=== PATIENT | male | born 1955 | race Hispanic/Latino ===

== ENCOUNTER 2019-03-10 15:29 | Emergency (ER) | payer BC | END 2019-03-10 18:14 | disposition left against medical advice (07) | LOC: ERS 15:29 | DX: Z53.21 Procedure and treatment not carried out due to patient leaving prior to being seen by health care provider (principal) ==

== ENCOUNTER 2019-03-10 20:25 | Emergency (ER) | payer BC ==
[2019-03-10] MEDS ORDERED: Fentanyl 100 MCG/2 ML VIAL ONE (22:08)
--- NOTE | 2019-03-10 22:49 | CT ---
CT Cervical Spine WO Con Indication: History of neck pain following injury COMPARISON: None. FINDINGS: Acute fracture/subluxation: None. Spinal alignment: No acute malalignment. Craniocervical junction: Within normal limits. Vertebral body heights: Maintained. Cervical spine degenerative change: There is mild disc degenerative disease at C5-6. Osseous central canal is preserved. Lung apices: Clear. IMPRESSION: No acute osseous abnormality.
--- NOTE | 2019-03-10 22:51 | CT ---
EXAM: CT Thoracic Spine WO Con DATE: 03/10/2019 12:00 AM INDICATION: Injury with back pain COMPARISON: Lumbar spinal radiograph dated 03/10/2019 at 7:32 PM FINDING: The age-indeterminate L2 compression fracture seen on the comparison lumbar spinal radiogra ph has an acute appearance by CT. No appreciable retropulsion bone fragments is noted. There is a chronic T12 wedge compression fracture. There is diffuse osteopenia. No thoracic vertebral body compr ession abnormality is grossly evident. There is mild multilevel disc degenerative disease. Osseous central canal appears relatively well preserved. There is bibasilar lung atelectasis. IMPRESSION: 1. Acute superior endplate compression fracture of L2. 2. Chronic wedge compression abnormality of T12. 3. No acute fracture or subluxation of the thoracic spine. 4. Mild multilevel thoracic spondylosis and diffuse osteopenia.
--- NOTE | 2019-03-10 23:08 | CT ---
EXAM: CT Lumbar Spine WO Con DATE: 03/10/2019 9:34 PM INDICATION: Back pain COMPARISON: Lumbar spinal radiographs dated March 10, [address] the abdomen and pelvis dated 2014 FINDING: There is acute mild to moderate superior endplate wedge compression fracture of L2 without retropulsion of bone fragments. There is a chronic T12 wedge compression fracture. There is wall thickening with pericolonic inflammatory stranding involving the sigmoid colon suspicious for noncomp licated diverticulitis. There is diffuse osteopenia. IMPRESSION: 1. Acute mild to moderate superior endplate wedge compression fracture of L2. 2. Noncomplicated sigmoid colonic diverticulitis 3. Chronic T12 wedge compression fracture.
== END 2019-03-11 01:40 | disposition home or self-care (01) ==
LOC: ERS 20:25
DX: S32.020A Wedge compression fracture of second lumbar vertebra, initial encounter for closed fracture (principal); E78.5 Hyperlipidemia, unspecified; E78.00 Pure hypercholesterolemia, unspecified; I10 Essential (primary) hypertension; W17.89XA Other fall from one level to another, initial encounter; Y93.72 Activity, wrestling
CPT/HCPCS: 72125; 72128; 72131; 96374; J3010; L0639

== ENCOUNTER 2019-04-21 09:58 | Outpatient (CLI) | payer BC ==
--- NOTE | 2019-04-21 10:37 | RAD ---
EXAM: Lumbar spine: 2 views INDICATIONS: Follow-up fracture COMPARISON: CT lumbar spine 03/10/2019 FINDINGS: Compression fracture at L2 again noted. Anterior wedging. Degree of height loss does not ap pear significantly changed from the CT of 03/10/2019. Slight retropulsion of superior posterior cortex was noted on CT. This appears unchanged. The other lumbar vertebral maintain height. There is mild wedging at T12 with disc narrowing at T11-T 12 and degenerative change. IMPRESSION: Compression deformity at L2 appear stable;
== END 2019-04-21 09:59 | disposition home or self-care (01) ==
LOC: TBSIIMAG 09:58
PROVIDERS: ATTEND Surgery
DX: S32.021D Stable burst fracture of second lumbar vertebra, subsequent encounter for fracture with routine healing (principal)
CPT/HCPCS: 72100

== ENCOUNTER 2019-06-02 08:36 | Outpatient (CLI) | payer BC ==
--- NOTE | 2019-06-02 09:40 | RAD ---
EXAM: XR Thoracic Spine 3 V STANDARD DATE: 06/02/2019 12:00 AM INDICATION: Low back pain COMPARISON: None. FINDING: Chronic T12 wedge compression fracture is unchanged. Multilevel spondylosis is stable appea ring. The acute moderate to severe wedge compression abnormality of L2 is better seen on the lumbar radiographs performed on the same day. Please see this dictation for further details. IMPRESSION:Stable chronic T12 wedge compression abnormality and mild multilevel thoracic spondylosis.
--- NOTE | 2019-06-02 09:41 | RAD ---
EXAM: XR Lumbar Spine 2 Or 3 View DATE: 06/02/2019 12:00 AM INDICATION: Back pain COMPARISON: Prior exam dated April 21, 2019 FINDING: Chronic T12 wedge compression fracture is stable. The moderate superior endplate wedge comp ression abnormality of L2 is stable. Mild multilevel spondylosis and degenerative levoscoliosis is stable. IMPRESSION:Stable L2 compression fracture
== END 2019-06-02 08:37 | disposition home or self-care (01) ==
LOC: TBSIIMAG 08:36
PROVIDERS: ATTEND Surgery
DX: M54.5 Low back pain (principal); S32.029A Unspecified fracture of second lumbar vertebra, initial encounter for closed fracture; M47.814 Spondylosis without myelopathy or radiculopathy, thoracic region
CPT/HCPCS: 72072; 72100

== ENCOUNTER 2021-11-10 18:50 | Emergency (ER) | payer BC | END 2021-11-10 21:47 | disposition home health service (06) | LOC: ERS 18:50 | DX: S60.221A Contusion of right hand, initial encounter (principal); E78.5 Hyperlipidemia, unspecified; E78.00 Pure hypercholesterolemia, unspecified; I10 Essential (primary) hypertension; W22.8XXA Striking against or struck by other objects, initial encounter ==

== ENCOUNTER 2022-11-30 13:03 | Emergency (ER) | payer BC ==
[~2022-11-30 13:03] MED LIST: Iopamidol-370 76% 500 ML MDV (1 ML CHARGE) ONE
[2022-11-30 13:27] LABS: #Monocytes 0.8 thou/uL (0.11-0.59); #Neutrophils 7.4 thou/uL (1.40-6.50); %Basophils 0.3 % (0.0-1.0); %Eosinophils 0.3 % (0.0-10.0); %Lymphocytes 16.1 % (21.0-51.0); %Monocytes 8.1 % (0.0-10.0); %Neutrophils 74.9 % (42.0-75.0); Hemoglobin 12.9 g/dL (14.0-18.0); Mean Corpuscular HGB CONC 32.5 g/dL (32.0-36.0); Mean Corpuscular Hemoglobin 26.4 pg (27.0-31.0); Mean Corpuscular Volume 81.2 fl (78.0-98.0); Platelet Count 208 10x3/uL (130-400); RBC Distribution Width 13.7 % (11.5-14.5); Red Blood Cell (RBC) Count 4.89 mill/uL (4.70-6.10); White Blood Cell (WBC) Count 9.9 10x3/uL (4.8-10.8)
[2022-11-30 13:33] LABS: Bilirubin Negative (Negative); Blood, Urine Negative (Negative); Clarity Clear (Clear); Glucose, Urine (Dipstick) Normal (Negative); Ketone, Urine 60 mg/dL (Negative); Leukocyte Negative Leu/uL (Negative); Nitrite Negative (Negative); Protein, Urine (Dipstick) 10 mg/dL (Neg-Trace); Specific Gravity, Urine 1.022 (1.002-1.036); Urobilinogen Normal mg/dL (Less than 2); pH, Urine 5.5 (5.0-9.0)
[2022-11-30 13:49] LABS: ALT (SGPT) 41 U/L (8-55); AST (SGOT) 21 U/L (5-34); Alkaline Phosphatase 73 U/L (40-110); Anion Gap 13 mmol/L (10-20); BUN (Urea Nitrogen) 20 mg/dL (8.4-25.7); Bilirubin, Total 0.9 mg/dL (0.2-1.2); Calc. Creatinine Clearance 0 mL/min (70-130); Calcium 9.2 mg/dL (7.8-10.44); Carbon Dioxide 22 mmol/L (23-31); Chloride 103 mmol/L (98-107); Estimated GFR 99; Globulin 3.8 g/dL (2.4-3.5); Glucose 99 mg/dL (80-115); Lipase 11 U/L (8-78); Potassium 4.1 mmol/L (3.5-5.1); Protein, Total 7.8 g/dL (5.8-8.1); Sodium 134 mmol/L (136-145)
== END 2022-11-30 17:47 | disposition home or self-care (01) ==
LOC: ERS 13:03
DX: K57.92 Diverticulitis of intestine, part unspecified, without perforation or abscess without bleeding (principal); E78.00 Pure hypercholesterolemia, unspecified; I10 Essential (primary) hypertension; Z79.899 Other long term (current) drug therapy
CPT/HCPCS: 36415; 74177; 80053; 81003; 83690; 85025; Q9967